=== PATIENT | male | born 1985 | race Caucasian/White ===

== ENCOUNTER 2021-04-05 19:01 | Emergency (ER) | payer OTHER ==
[~2021-04-05] VITALS: Ht 195.6 cm; Wt 104.3 kg
[2021-04-05] MEDS ORDERED: KEFLEX250 MG PO (20:13)
[2021-04-05 20:29] VITALS: BP 116/76
== END 2021-04-05 20:29 | disposition home or self-care (01) ==
LOC: M.ERS 19:01
DX: S61.211A Laceration without foreign body of left index finger without damage to nail, initial encounter (principal); W26.0XXA Contact with knife, initial encounter; Y93.89 Activity, other specified; Y92.89 Other specified places as the place of occurrence of the external cause; Y99.8 Other external cause status